=== PATIENT | female | born 1940 | race Caucasian/White ===

== ENCOUNTER → 2022-06-14 07:48 | Outpatient (CLI) | payer OTHER ==
[~2022-06-14 07:48] MED LIST: ALEVE220 M1 PO; CEFADROXIL500 MG PO; MACROBID 100 M100 MG PO; PERCOCET 5/3251 TAB PO; ULTRACET PO
== END | disposition home or self-care (01) ==
LOC: LAB 07:48
PROVIDERS: ATTEND Internal Medicine Hematology & Oncology
DX: D50.8 Other iron deficiency anemias (principal); R79.9 Abnormal finding of blood chemistry, unspecified; I10 Essential (primary) hypertension; R74.02 Elevation of levels of lactic acid dehydrogenase [LDH]; K76.89 Other specified diseases of liver; D72.829 Elevated white blood cell count, unspecified; D51.3 Other dietary vitamin B12 deficiency anemia; R63.4 Abnormal weight loss; E78.2 Mixed hyperlipidemia; E03.8 Other specified hypothyroidism; N63.10 Unspecified lump in the right breast, unspecified quadrant

== ENCOUNTER 2022-10-14 08:17 | Outpatient (CLI) | payer OTHER | END 2022-10-14 15:30 | disposition home or self-care (01) | LOC: LAB 08:17 | PROVIDERS: ATTEND Internal Medicine Hematology & Oncology | DX: D72.829 Elevated white blood cell count, unspecified (principal); D51.3 Other dietary vitamin B12 deficiency anemia; R63.4 Abnormal weight loss; E78.2 Mixed hyperlipidemia; E03.8 Other specified hypothyroidism; N63.10 Unspecified lump in the right breast, unspecified quadrant; D50.8 Other iron deficiency anemias; I10 Essential (primary) hypertension; D51.0 Vitamin B12 deficiency anemia due to intrinsic factor deficiency; R74.02 Elevation of levels of lactic acid dehydrogenase [LDH]; K76.89 Other specified diseases of liver; D63.8 Anemia in other chronic diseases classified elsewhere; D51.8 Other vitamin B12 deficiency anemias; D51.1 Vitamin B12 deficiency anemia due to selective vitamin B12 malabsorption with proteinuria; D55.0 Anemia due to glucose-6-phosphate dehydrogenase [G6PD] deficiency ==

== ENCOUNTER 2023-01-30 06:55 | Outpatient (CLI) | payer OTHER | END 2023-01-30 06:59 | disposition home or self-care (01) | LOC: LAB 06:55 | PROVIDERS: ATTEND Internal Medicine Hematology & Oncology | DX: D50.8 Other iron deficiency anemias (principal); R79.9 Abnormal finding of blood chemistry, unspecified; I10 Essential (primary) hypertension; R74.02 Elevation of levels of lactic acid dehydrogenase [LDH]; K76.89 Other specified diseases of liver; D51.8 Other vitamin B12 deficiency anemias; D72.829 Elevated white blood cell count, unspecified; D51.3 Other dietary vitamin B12 deficiency anemia; R63.4 Abnormal weight loss; E78.2 Mixed hyperlipidemia; E03.8 Other specified hypothyroidism; N63.10 Unspecified lump in the right breast, unspecified quadrant ==

== ENCOUNTER 2024-01-19 07:00 | Outpatient (CLI) | payer OTHER ==
[2024-01-19 08:18] LABS: HEMATOCRIT 37.1 % (36.0-45.00); HEMOGLOBIN 12.4 g/dL (12.0-15.00); MEAN CELL VOLUME 87.9 fL (80.00-100.00); MEAN CORPUSCULAR HEMOGLOBIN 29.4 pg (27.00-32.0); MEAN CORPUSCULAR HGB CONC 33.5 g/dl (32.0-36.0); PLATELET COUNT 171 K/uL (150-450); RED BLOOD COUNT 4.23 M/uL (4.00-6.00); RED CELL DISTRIBUTION WIDTH 13.6 % (11.5-14.5)
[2024-01-19 08:42] LABS: % SATURACION 25.3 % (15-50); ALBUMIN 3.9 gm/dL (3.4-5.0); BILIRUBIN TOTAL 0.8 mg/dL (0.3-1.2); CALCIUM 9.1 mg/dL (8.5-10.1); CREATININE SERUM 0.9 mg/dL (0.55-1.02); FERRITIN 227.3 NG/ML (8-252); GFR 59.94; GLOBULINA 2.9 G/DL (2.4-3.5); POTASSIUM 4.2 mEq/L (3.5-5.1); TOTAL PROTEIN 6.8 gm/dL (6.4-8.2)
[2024-01-19 10:43] LABS: FOLIC ACID > 20.00 ng/ml (4.78-20)
[2024-01-19 15:04] LABS: MANUAL PLATELET COUNT 216
[2024-01-19 15:05] LABS: PLATELET ESTIMATE NORMAL (NORMAL)
[2024-01-21 09:08] LABS: CA 125 6.6 U/mL (0.0-38.1); CA 15-3 18.5 U/mL (0.0-25.0)
== END 2024-01-19 07:01 | disposition home or self-care (01) ==
LOC: LAB 07:00
PROVIDERS: ATTEND Internal Medicine Hematology & Oncology
DX: D72.829 Elevated white blood cell count, unspecified (principal); D51.3 Other dietary vitamin B12 deficiency anemia; D53.0 Protein deficiency anemia; R63.4 Abnormal weight loss; E78.2 Mixed hyperlipidemia; E03.8 Other specified hypothyroidism; N63.10 Unspecified lump in the right breast, unspecified quadrant